=== PATIENT | male | born 2005 | race Two or more races ===

== ENCOUNTER 2025-07-14 20:52 | Emergency (ER) | payer OTHER ==
[~2025-07-14] VITALS: Ht 172.7 cm; Wt 86.7 kg
--- NOTE | 2025-07-14 23:55 | ED.PDOC ---
History of Present Illness(SKN HPI Comments 20-year-old male presents to the ED status post dog bite. Patient states he was riding a scooter when a stray dog came out limit bit him in the back. Complaining of to bite puncture wounds right side lower back. Notes minimal pain 1/10 on pain scale at this time. Reports tetanus greater than 10 years. Denies fever, chills, nausea, vomiting, spinal pain, weakness or numbness. Chief Complaint: Animal Bite Time Seen by MD: 21:04 History of Present Illness: Nurses Notes, Medications, Allergies Information Source: Patient Mode of Arrival: Ambulatory Past Medical History PAST MEDICAL HISTORY: Denies Surgical History: Denies all surgeries Family History Family History: Reviewed,noncontributory to illness Social History Smoker: Non-Smoker Alcohol: Denies ETOH Use Drugs: Denies Drug Use All Other Systems: Reviewed and Negative (see hpi) Physical Exam General Appearance: No Apparent Distress, Normal HEENT: Normal ENT Inspection, Pharynx Normal, TMs Normal Neck: Full Range of Motion, Non-Tender, Normal, Normal Inspection Respiratory: Chest Non-Tender, Lungs Clear, No Accessory Muscle Use, No Respiratory Distress, Normal Breath Sounds Cardiovascular: No Edema, No JVD, No Murmur, No Gallop, Normal Peripheral Pulses, Regular Rate/Rhythm Breast Exam: Deferred Gastrointestinal: No Organomegaly, Non Tender, No Pulsatile Mass, Normal Bowel Sounds, Soft Genitalia: Deferred Pelvic: Deferred Rectal: Deferred Extremities: Normal capillary refill, Normal range of motion, No pedal edema Musculoskeletal : Apperance: Normal Neurologic: Alert, No Motor Deficits, Normal Affect, Normal Mood, No Sensory Deficits Cerebellar Function: Normal Reflexes: Normal Skin: Dry, Normal Color, Warm, Wounds (Two puncture wounds to right side lower back no noted bleeding or obvious foreign body no tenderness along the spine. ) Lymphatic: No Adenopathy Was a procedure done? Was a procedure done?: No Differential Diagnosis (INTG) Differential Diagnosis: Abrasion, Cellulitis, Hematoma, Laceration, Puncture Wound Differential Diagnosis: Abscess X-Ray, Labs, Meds, VS Vital Signs Date Time Temp Pulse Resp B/P (MAP) Pulse Ox O2 Delivery O2 Flow Rate FiO2 07/14/25 20:55 98.6 69 18 154/93 97 98.6 X-Ray, Labs, Meds, VS Comment Patient given tetanus. Script prophylactic trial of antibiotics advised take medication as prescribed side effects discussed. [id number]-dovuugb Tylenol or Motrin as needed for the pain per labeled dosing instructions. Follow up with your PCP in 2-3 days as necessary for signs and symptoms of increased redness swelling or drainage return to the ER. Patient indicates understanding and agrees with discharge plan of care. Time of 1ST Reevaluation: 21:04 Reevaluation 1ST: Unchanged Time of 2ND Reevaluation: 00:05 Reevaluation 2ND: Improved Patient Education/Counseling: Diagnosis, Treatment, Prognosis, Need For Follow Up Family Education/Counseling: No Family Present SEPSIS Sepsis Screen Date sepsis recognized/suspect: Jul 14, 2025 Time Sepsis recognized/suspect: 2099 Recent Procedure: No On Antibiotic Therapy: No Respiratory Rate >20: No Heart Rate >90: No Temp<36 C (96.8 F) or >38.3 C: No SBP <90 or MAP <65 mmHG: No New Acute Mental Status Change: No Is the patient on CPAP, BIPAP,: No Physician Orders Tetanus Rskory-Kfdxcrycig-Vzen (Boostrix (07/15/25 00:15) Vital Signs Date Time Temp Pulse Resp B/P (MAP) Pulse Ox O2 Delivery O2 Flow Rate FiO2 07/14/25 20:55 98.6 69 18 154/93 97 98.6 Departure 1 Departure Time of Disposition: 00:05 Impression: Primary Impression: Dog bite of back Disposition: 01 HOME / SELF CARE / HOMELESS Condition: Stable e-Prescriptions Amoxicillin & Pot Clavulanate (AUGMENTIN TABLET) 875 Mg Tb 875 MG PO BID for 7 Days, #14 TAB Prov: PADMINI BREEN 07/15/25 Discharged With: Self Critical Care Note Critical Care Time?: No Stability Stability form required: No PADMINI BREEN Jul 14, 2025 23:55
[2025-07-15] MEDS ORDERED: AUG875T PO (00:03)
[2025-07-15] MEDS: TETANUS-DIPTH-ACEL PERTUSSIS 0.5ML SYR Tdap IM ONE (00:32)
[2025-07-15 00:36] VITALS: BP 144/76; PULSE 88; RESP 18; TEMP 97.9; O2SAT 97
== END 2025-07-15 00:34 | disposition home or self-care (01) ==
LOC: ER 20:52
DX: S31.030A Puncture wound without foreign body of lower back and pelvis without penetration into retroperitoneum, initial encounter (principal); W54.0XXA Bitten by dog, initial encounter; Y93.89 Activity, other specified; Y92.89 Other specified places as the place of occurrence of the external cause; Y99.8 Other external cause status
CPT/HCPCS: 90471; 90715